=== PATIENT | female | born 1965 | race Caucasian/White ===

== ENCOUNTER 2024-07-19 17:19 | Inpatient (IN) | payer OTHER ==
[2024-07-19 18:41] LABS: BASO % 0.5 % (0-2.0); EOS % 0.2 % (0-4.5); HEMATOCRIT 36.4 % (32.4-45.2); HEMOGLOBIN 12.2 GM/dL (10.7-15.3); LYMPH % 29.8 % (8-40); MCH 32.2 pg (25.7-33.7); MCHC 33.6 g/dl (32.0-36.0); MEAN PLT VOLUME 7.5 fl (7.5-11.1); MONO % 17.3 % (3.8-10.2); NEUT % 52.2 % (42.8-82.8); PLATELET COUNT 100 10^3/uL (134-434); RBC 3.79 M/mm3 (3.60-5.2); RDW 13.7 % (11.6-15.6); WHITE BLOOD COUNT 7.6 K/mm3 (4.0-10.0)
[2024-07-19 19:06] LABS: POTASSIUM 3.9 mmol/L (3.5-5.1)
[2024-07-19 19:08] LABS: CALCIUM 8.8 mg/dL (8.5-10.1)
[2024-07-19 19:09] LABS: ALBUMIN 3.3 g/dl (3.4-5.0)
[2024-07-19 19:12] LABS: CREATININE 0.8 mg/dL (0.55-1.3)
[2024-07-19 19:13] LABS: BILIRUBIN,TOTAL 0.6 mg/dL (0.2-1)
[2024-07-19] MEDS ORDERED: ALBUTEROL SO4 2.5/IPRATROPIUM 0.5 INH SOL 3 ML VIAL.NEB. NEB ONE (21:00)
[2024-07-19] MEDS: ALBUTEROL SO4 2.5/IPRATROPIUM 0.5 INH SOL 3 ML VIAL.NEB. NEB ONE (21:05)
[2024-07-19] MEDS ORDERED: OSELTAMIVIR PHOSPHATE 75 MG CAPSULE ONE (21:48)
[2024-07-19] MEDS: OSELTAMIVIR PHOSPHATE 75 MG CAPSULE PO SCH (21:50)
[2024-07-19 22:40] VITALS: RESP 18
[2024-07-19] MEDS: DIVALPROEX NA *ER* EXTEND REL 500 MG TABLET.SA (FP) PO SCH (23:43)
[2024-07-19 23:56] VITALS: BMI 20.2
[2024-07-20] MEDS: clonazePAM 0.5 MG TABLET PO SCH (06:09)
[2024-07-20 08:08] LABS: BASO % 0.6 % (0-2.0); EOS % 0.8 % (0-4.5); HEMATOCRIT 36.3 % (32.4-45.2); HEMOGLOBIN 12.1 GM/dL (10.7-15.3); LYMPH % 34.5 % (8-40); MCH 32.4 pg (25.7-33.7); MCHC 33.5 g/dl (32.0-36.0); MEAN CELL VOLUME 96.7 fl (80-96); MEAN PLT VOLUME 8.1 fl (7.5-11.1); MONO % 19.8 % (3.8-10.2); NEUT % 44.3 % (42.8-82.8); PLATELET COUNT 102 10^3/uL (134-434); RBC 3.75 M/mm3 (3.60-5.2); RDW 13.7 % (11.6-15.6); WHITE BLOOD COUNT 5.6 K/mm3 (4.0-10.0)
[2024-07-20 08:15] LABS: POTASSIUM 4.1 mmol/L (3.5-5.1)
[2024-07-20 08:20] LABS: ALBUMIN 3.2 g/dl (3.4-5.0); BLOOD UREA NITROGEN 12.8 mg/dL (7-18)
[2024-07-20 08:21] LABS: MAGNESIUM 1.9 mg/dL (1.8-2.4)
[2024-07-20 08:23] LABS: CREATININE 0.8 mg/dL (0.55-1.3)
[2024-07-20 08:25] LABS: BILIRUBIN,TOTAL 0.6 mg/dL (0.2-1); TOT PROT 6.8 g/dl (6.4-8.2)
[2024-07-20] MEDS ORDERED: ENOXAPARIN NA (PORCINE) 40 MG/0.4 ML DISP.SYRIN SQ SCH (10:00)
[2024-07-20] MEDS ORDERED: predniSONE 20 MG TABLET (UD) PO SCH (10:00)
[2024-07-20] MEDS: DIVALPROEX SODIUM 125 MG TABLET E.C. PO SCH (10:24)
[2024-07-20] MEDS: predniSONE 20 MG TABLET (UD) PO SCH (10:25)
[2024-07-20 16:51] LABS: HEMATOCRIT 38.7 % (32.4-45.2); HEMOGLOBIN 12.6 GM/dL (10.7-15.3); MCH 31.9 pg (25.7-33.7); MCHC 32.5 g/dl (32.0-36.0); MEAN CELL VOLUME 98.3 fl (80-96); MEAN PLT VOLUME 8.5 fl (7.5-11.1); PLATELET COUNT 107 10^3/uL (134-434); RBC 3.94 M/mm3 (3.60-5.2); RDW 13.9 % (11.6-15.6); WHITE BLOOD COUNT 4.5 K/mm3 (4.0-10.0)
[2024-07-20 17:08] LABS: POTASSIUM 5.1 mmol/L (3.5-5.1)
[2024-07-20 17:10] LABS: ALBUMIN 3.2 g/dl (3.4-5.0); BLOOD UREA NITROGEN 16.5 mg/dL (7-18)
[2024-07-20 17:13] LABS: CREATININE 0.9 mg/dL (0.55-1.3)
[2024-07-20 17:15] LABS: BILIRUBIN,TOTAL 0.4 mg/dL (0.2-1); TOT PROT 7.1 g/dl (6.4-8.2)
[2024-07-20] MEDS: ALBUTEROL SO4 2.5/IPRATROPIUM 0.5 INH SOL 3 ML VIAL.NEB. NEB PRN (18:16)
[2024-07-21 08:55] LABS: HEMATOCRIT 35.6 % (32.4-45.2); HEMOGLOBIN 12.1 GM/dL (10.7-15.3); MCH 32.7 pg (25.7-33.7); MCHC 33.9 g/dl (32.0-36.0); MEAN CELL VOLUME 96.5 fl (80-96); MEAN PLT VOLUME 8.8 fl (7.5-11.1); PLATELET COUNT 113 10^3/uL (134-434); RBC 3.69 M/mm3 (3.60-5.2); RDW 13.6 % (11.6-15.6); WHITE BLOOD COUNT 7.4 K/mm3 (4.0-10.0)
[2024-07-21 09:08] LABS: POTASSIUM 4.4 mmol/L (3.5-5.1)
[2024-07-21 09:11] LABS: CALCIUM 9.1 mg/dL (8.5-10.1)
[2024-07-21 09:12] LABS: ALBUMIN 3.1 g/dl (3.4-5.0); BLOOD UREA NITROGEN 17.8 mg/dL (7-18)
[2024-07-21 09:15] LABS: CREATININE 0.8 mg/dL (0.55-1.3)
[2024-07-21 09:16] LABS: BILIRUBIN,TOTAL 0.4 mg/dL (0.2-1)
[2024-07-21 09:17] LABS: TOT PROT 6.8 g/dl (6.4-8.2)
[2024-07-22 11:38] VITALS: BP 100/63; PULSE 74; TEMP 97.7
== END 2024-07-22 14:38 | disposition home or self-care (01) | DRG 194 ==
LOC: JER 17:19 → JERBED 20:46 → OBSVTOIN 20:54 → J7W 23:07
PROVIDERS: ADMIT Internal Medicine; ATTEND Physician Assistant
DX: J10.1 Influenza due to other identified influenza virus with other respiratory manifestations (principal); J45.901 Unspecified asthma with (acute) exacerbation; F31.9 Bipolar disorder, unspecified; F41.9 Anxiety disorder, unspecified; R73.03 Prediabetes; D69.6 Thrombocytopenia, unspecified; R09.02 Hypoxemia; F81.9 Developmental disorder of scholastic skills, unspecified; R56.9 Unspecified convulsions; E78.5 Hyperlipidemia, unspecified; R74.01 Elevation of levels of liver transaminase levels
CPT/HCPCS: 0241U-QW; 36415; 71045-TC-FY; 80053; 83036; 83735; 84100; 84484; 85025; 85027; 93005; 93010; 94640; 99285-25; G0378